=== PATIENT | male | born 1955 | race Caucasian/White ===

== ENCOUNTER 2017-08-07 21:19 | Inpatient (IN) | payer OTHER ==
[~2017-08-07] VITALS: Ht 180.3 cm; Wt 112.1 kg
--- NOTE | ~2017-08-07 | H ---
[place] [address] HISTORY AND PHYSICAL Name: ANTONETTE RODRIGUEZ Room #: 248-P [facility] IN M.R.#: [id number] Admission: 08/07/17 Attend Phys: Kimo Ballard MD Discharge: Date of : 51 Report #: [id number] THIS REPORT FOR: //name// CC: Kimo BRUNO PCP DATE OF SERVICE: 08/07/2017 INDICATION: Chest pain. HISTORY OF PRESENT ILLNESS: This is a 61-year-old gentleman with a history of psoriasis, strong family history for premature CAD, presenting with acute onset of chest pain. About 45 minutes prior to presentation to the ER, he developed substernal chest pains, radiating down the left arm. He had been at home, painting when this occurred. He felt diaphoretic, but denies any shortness of breath or nausea. In the ER, the ECG reveals sinus rhythm with ST elevation in the precordial leads. While in the ER, the patient developed VFib requiring DC cardioversion at 200 joules. He was given aspirin, epinephrine and amiodarone. He is awake and continues to have chest discomfort. There is no history of fever, chills or diarrhea. PAST MEDICAL HISTORY: Psoriasis. Denies diabetes or hypertension. ALLERGIES: None. MEDICATIONS: None. SOCIAL HISTORY: Denies tobacco use. FAMILY HISTORY: Positive for premature CAD, father with an HI in his 50s. REVIEW OF SYSTEMS: A full 10-point review of systems performed. Only the pertinent positives and negatives are described in the HPI. PHYSICAL EXAMINATION: VITAL SIGNS: Blood pressure is 110/70, heart rate is 100 beats per minute. GENERAL APPEARANCE: An overweight male in no acute respiratory distress. HEAD AND EYES: Normocephalic. Sclerae are anicteric. ENT: Oral mucosa moist. NECK: Supple. LUNGS: Clear to auscultation. CARDIAC: Regular rate and rhythm, S1, S2 positive. ABDOMEN: Soft. EXTREMITIES: No cyanosis, no edema. NEUROLOGIC: Alert and oriented x 3. [address] [place] [address] HISTORY AND PHYSICAL Name: ANTONETTE RODRIGUEZ Room #: 248-[facility] IN M.R.#: [id number] Admission: 08/07/17 Attend Phys: Kimo Ballard MD Discharge: Date of : 51 Report #: [id number] LABORATORY VALUES: ECG reveals sinus rhythm, ST elevation in leads V1 through V5. ASSESSMENT: 1. Acute anterior wall myocardial infarction. The patient will be taken emergently to the cardiac slab worker. 2. VFib secondary to HI, status post shock. Treated with epinephrine and amiodarone. 3. Hypercholesterolemia, start on statin. 4. Strong family history for premature coronary artery disease. <ELECTRONICALLY SIGNED> By: Kimo Ballard MD 08/08/17 0819 99 2254 Kimo Ballard MD /nt
--- NOTE | ~2017-08-07 | EKG ---
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 : 1955 Requested By: Mikel Rueda Order Number: [id number] MD: Kimo Ballard Measurements Intervals [place] Rate: 89 P: 43 PA: 175 QRS: 6 QRSD: 96 T: 81 QT: 368 QTc: 448 Interpretive Statements Sinus rhythm Probable left atrial enlargement Extensive anterior infarct, acute (LAD) ST elevation, consider inferior injury No previous ECG available for comparison Electronically Signed On 08-07-2017 23:07:51 GROUND EQUIPMENT MECHANIC by Kimo Ballard [email or web address] <ELECTRONICALLY SIGNED> By: Kimo Ballard MD 08/07/17 2307 2123 2123 Kimo Ballard MD /MATTIE
--- NOTE | ~2017-08-07 | EKG ---
[address] [address] ELECTROCARDIOGRAM REPORT Name: ANTONETTE RODRIGUEZ Room #: 248-P ADM IN M.R.#: [id number] Admission: 08/07/17 Attend Phys: Kimo Ballard MD Discharge: Date of : 53 Report #: [id number] THIS REPORT FOR: //name// [facility] Test Date: 2017-08-08 Test Time: 12:24:06 Pat Name: ANTONETTE RODRIGUEZ Department: Room: 248 P Gender: M Estate Attorney: BENNETT : 1955 Requested By: Kimo Ballard Order Number: [id number] MD: Chivo Howell Measurements Intervals [place] Rate: 94 P: HI: QRS: -5 QRSD: 99 T: 127 QT: 365 QTc: 457 Interpretive Statements Atrial flutter/fibrillation Ventricular premature complex Probable anteroseptal infarct, old Nonspecific T abnormalities, lateral leads Minimal ST elevation, lateral leads Compared to ECG 08/07/2017 23:28:35 Ventricular premature complex(es) now present Myocardial infarct finding now present T-wave abnormality now present ST (T wave) deviation still present Electronically Signed On 08-08-2017 14:08:26 HVAC SHEET METAL INSTALLER HELPER by Chivo Howell [email or web address] <ELECTRONICALLY SIGNED> By: Chivo Howell MD 08/08/17 1408 1224 1224 Chivo Howell MD /EPI
--- NOTE | ~2017-08-07 | D ---
[facility] [place] [address] DISCHARGE SUMMARY Name: ANTONETTE RODRIGUEZ Room #: 200-I [facility] IN M.R.#: [id number] Admission: 08/07/17 Attend Phys: Kimo Ballard MD Discharge: 08/10/17 Date of : 51 Report #: [id number] THIS REPORT FOR: //name// CC: Kimo Ballard NO PCP DATE OF SERVICE: 08/10/2017 FINAL DIAGNOSES: 1. Acute anterior wall myocardial infarction, status post coronary angioplasty. 2. Ventricular fibrillation, status post cardioversion. 3. Atrial fibrillation. 4. Hypercholesterolemia. 5. Family history for premature coronary artery disease. 6. Psoriasis. HOSPITAL COURSE: Please see the original H and P for full details. The patient presented to the hospital with complaints of substernal chest discomfort. The ECG revealed ST elevation in the precordial leads. While in the ER, he developed ventricular fibrillation requiring DC cardioversion. The rhythm converted to atrial fibrillation. He was taken emergently to the cardiac farm laborer. Please see the cath report for full details. There was a subtotal occlusion involving the proximal LAD, angioplasty was performed with placement of a drug-eluting stent. He was transferred to the ICU. He was treated with IV amiodarone, and the rhythm converted to sinus. He has remained stable on CCU telemetry, ambulating without any difficulties. He reports no further episodes of chest discomfort. FINAL DISPOSITION: Aspirin 81 mg daily, Brilinta 90 mg twice a day, Lipitor 40 mg daily, Toprol-XL 25 mg daily, losartan 25 mg daily, amiodarone 200 mg daily. He will be given a followup appointment in the office. <ELECTRONICALLY SIGNED> By: Kimo Ballard MD 08/11/17801 Kimo Ballard MD /nt
--- NOTE | ~2017-08-07 | EKG ---
[address] [address] ELECTROCARDIOGRAM REPORT Name: ANTONETTE RODRIGUEZ Room #: 248-P ADM IN M.R.#: [id number] Admission: 08/07/17 Attend Phys: Kimo Ballard MD Discharge: Date of : 51 Report #: [id number] THIS REPORT FOR: //name// [facility] Test Date: 2017-08-07 Test Time: 23:28:35 Pat Name: ANTONETTE RODRIGUEZ Department: Room: 248 Gender: M Chipper Feeder: ajith : 1955 Requested By: Kimo Ballard Order Number: [id number] MD: Kimo Ballard Measurements Intervals [place] Rate: 140 P: 0 NC: 128 QRS: 3 QRSD: 93 T: 112 QT: 315 QTc: 481 Interpretive Statements Atrial fibrillation with rapid ventricular rate ST elevation precordial leads, rule out [place] Compared to ECG 08/07/2017 21:23:01 Sinus rhythm no longer present ST (T wave) deviation no longer present Myocardial infarct finding still present Electronically Signed On 08-08-2017 11:24:06 MINE PATROL by Kimo Ballard [email or web address] <ELECTRONICALLY SIGNED> By: Kimo Ballard MD 08/08/17 1124 2328 2328 Kimo Ballard MD /[facility]
--- NOTE | ~2017-08-07 | CATHLAB ---
[facility] [address] [place] [address] INVASIVE PROCEDURE REPORT Name: ANTONETTE RODRIGUEZ Room #: 160-1 ADM IN M.R.#: [id number] Admission: 08/07/17 Attend Phys: Kimo Ballard MD Discharge: Date of : 51 Date of Service: 08/07/17 2317 Report #: [id number] THIS REPORT FOR: //name// APPROVED REPORT Patient Details Patient Status: In-Patient Room #: The patient is a 61 year-old male Event Personnel Trish Jenkins, Eric Jimenez RN, Alem Lawrence RN RN, Brunilda Toribio Park, Jin Purse Maker Procedures Performed Art Access - R femoral artery* Hemostasis w/ Mynx HEATH Place w/wo Plasty Single LAD [id number] Left Heart Cath w/or w/o Coronaries [id number] [facility] Indication Arrhythmia, STEMI (>0 to less than or equal to 6 hours), Dyspnea, Chest pain Risk Factors Family History, Hypercholesterolemia Procedure Narrative The patient was brought emergently to the Cardiac Catheterization Laboratory and was prepped and draped in a sterile manner. The Right Groin^ was infiltrated with 1% Lidocaine subcutaneous anesthesia. A PINNACLE 6FR Sheath #[id number] sheath was inserted into the RFA^. Coronary angiography was performed using coronary diagnostic catheters. The right coronary system was accessed and visualized with a JR 4 catheter. The left coronary system was accessed and visualized with a JL 4 catheter. The left ventricle was accessed and visualized with a Pigtail catheter. Left ventricular/Aortic Valve gradient assessed via catheter pullback. Left ventriculogram was performed in LITTLE projection. Pre-demployment femoral angiogram was performed . Closure device was deployed with a 6 Fr Mynx. The patient tolerated the procedure well and there were no complications associated with the procedure. There was no hematoma. Fluoro Time: 7.57 minutes Dose: DAP 88962.30 cGycm2 1915 mGy Contrast Type and Amount: Omnipaque 300 ml [facility] [address] [place] [address] INVASIVE PROCEDURE REPORT Name: ANTONETTE RODRIGUEZ Room #: 160-1 [facility] IN ..#: [id number] Admission: 08/07/17 Attend Phys: Kimo Ballard MD Discharge: Date of : 51 Date of Service: 08/07/17 2317 Report #: [id number] Coronary Angiography The patient's coronary anatomy is right dominant. Diagnostic Cath Left Main large-caliber vessel, with no flow-limiting lesions. LAD 99% occlusion in the proximal segment with BIN 1 blood flow. Circumflex Moderate size caliber vessel, with mild disease in the distal segment. OM1 Patent vessel with mild disease proximally, 20%. OM2 Patent vessel with mild disease at the ostium. OM3 Patent vessel, with no flow-limiting lesions. Right Coronary Dominant vessel with a moderate to severe proximal stenosis, 60-70%. R PDA Patent vessel, with no flow-limiting lesions. RPLV Patent vessel, with no flow-limiting lesions. Left Ventriculography The left ventricle is normal in size with decreased contractility. The left ventricular ejection fraction is estimated to be 40%. Left ventricular wall motion abnormalities are present. There is hypokinesis of the distal anterior, apical and distal inferior segments. Hemodynamics The aortic pressure is 127/82 mmHg with a mean of 106 mmHg. The left ventricular pressure is 97/11 mmHg with a mean of mmHg. The left ventricular end diastolic pressure is 36 mmHg. PCI Technique Lesion Anticoagulation was achieved with Angiomax. Patient was preloaded with Brillinta. Percutaneous coronary intervention was performed on the proximal left anterior descending artery segment. The lesion stenosis prior to intervention was 99% with BIN 1 flow. A VISTA 6FR JL4 #[id number] Guide Catheter was used to engage the ostium. A Luge Wire .014 x 182CM #[id number] Interventional Guidewire was used to cross the lesion. BALLOON DILATION A Balloon catheter Euphora RX 3.0 x 12 #[id number] was inserted and inflated up to 8.00atm for 13seconds. STENT DEPLOYMENT A drug-eluting stent RESOLUTE RX 3.5 X 15 #[id number] was inserted and inflated up to 12.00atm for 24seconds. [facility] [address] [place] [address] INVASIVE PROCEDURE REPORT Name: ANTONETTE RODRIGUEZ Room #: 160-1 [facility] IN M.R.#: [id number] Admission: 08/07/17 Attend Phys: Kimo Ballard MD Discharge: Date of : 51 Date of Service: 08/07/17 2317 Report #: [id number] POST STENT DEPLOYMENT BALLOON DILATION A Balloon catheter Euphora NC RX 3.75 x 12 #[id number] was inserted and inflated up to 16.00atm for 23seconds. Final angiography reveals 0 % stenosis with BIN 3 flow. Conclusion 1. Successful insertion of a drug-eluting stent into the subtotal occlusion in the proximal LAD, with tenriism of BIN-3 blood flow. 2. Moderate to severe stenosis in proximal RCA. 3. Moderate segmental LV dysfunction. 4. Recommend CAD risk factor management and dual antiplatelet therapy. <ELECTRONICALLY SIGNED> By: Kimo Ballard MD 08/07/177 16 16 Kimo Ballard MD /INF
[2017-08-07 21:26] VITALS: BP 190/120
[2017-08-07 21:50] LABS: HEMATOCRIT 47.5 % (42.0-52.0); MCH 31.1 pg (26.0-34.0); MCHC 33.8 g/dL (28.0-37.0); MCV 92.2 fL (80.0-100.0); RBC 5.15 mil/uL (4.50-6.00); RDW 13.7 % (10.5-14.5)
[2017-08-07 22:00] LABS: ANION GAP 12 mmol/L (7-16); BUN 18 mg/dL (7-18); CALCIUM 9.9 mg/dL (8.5-10.1); CHLORIDE 103 mmol/L (98-107); CO2 25 mmol/L (21-32); CREATININE 1.1 mg/dL (0.7-1.3); GLUCOSE 128 mg/dL (74-106); POTASSIUM 3.8 mmol/L (3.5-5.1); SODIUM 140 mmol/L (136-145)
[2017-08-07 22:08] LABS: TROPONIN-I < 0.04 ng/mL (<0.06)
[2017-08-07 22:22] VITALS: BP 112/81
[2017-08-07 23:25] VITALS: BP 96/65
[2017-08-07 23:30] VITALS: BP 113/70
[2017-08-07 23:45] VITALS: BP 122/92
[2017-08-08] VITALS (29 sets, daily range): BP systolic 86–162; BP diastolic 48–106
[2017-08-08] MEDS ORDERED: ASPIR 8181 MG PO (00:31)
[2017-08-08] MEDS ORDERED: CO Q-10100 MG PO (00:32)
[2017-08-08] MEDS ORDERED: UNICOMPLEX M TA1 TA1 PO (00:32)
[2017-08-08] MEDS ORDERED: MUCINEX1200 MG PO (00:33)
[2017-08-08] MEDS ORDERED: DIPROLENE 0.05%15 GM TOP (00:35)
[2017-08-08] MEDS ORDERED: TUMS PO (00:37)
[2017-08-08 05:32] LABS: HEMATOCRIT 44.7 % (42.0-52.0); HEMOGLOBIN 15.1 gm/dL (14.0-18.0); MCH 31.1 pg (26.0-34.0); MCHC 33.8 g/dL (28.0-37.0); MCV 92.1 fL (80.0-100.0); RBC 4.86 mil/uL (4.50-6.00); WBC 11.6 thou/uL (4.0-11.0)
[2017-08-08 05:44] LABS: CALCIUM 9.6 mg/dL (8.5-10.1)
[2017-08-09] VITALS (9 sets, daily range): BP systolic 101–149; BP diastolic 69–83
[2017-08-09 05:05] LABS: HEMATOCRIT 44.6 % (42.0-52.0); HEMOGLOBIN 14.9 gm/dL (14.0-18.0); MCH 30.9 pg (26.0-34.0); MCHC 33.4 g/dL (28.0-37.0); MCV 92.4 fL (80.0-100.0); RBC 4.83 mil/uL (4.50-6.00); WBC 12.6 thou/uL (4.0-11.0)
[2017-08-09 05:24] LABS: CALCIUM 8.2 mg/dL (8.5-10.1); CREATININE 1.1 mg/dL (0.7-1.3)
[2017-08-09 05:28] LABS: TROPONIN-I 21.22 ng/mL (<0.06)
[2017-08-10 03:11] LABS: CALCIUM 8.4 mg/dL (8.5-10.1); CREATININE 1.1 mg/dL (0.7-1.3); POTASSIUM 3.6 mmol/L (3.5-5.1)
[2017-08-10 03:15] LABS: TROPONIN-I 12.44 ng/mL (<0.06)
[2017-08-10 03:20] VITALS: BP 112/75
[2017-08-10 08:08] VITALS: BP 135/83
[2017-08-10] MEDS ORDERED: COZAAR 25 MG TA25 M1 PO (08:14)
[2017-08-10] MEDS ORDERED: ATORVASTATIN CA40 MG PO (08:14)
[2017-08-10] MEDS ORDERED: TOPROL XL25 MG PO (08:14)
[2017-08-10] MEDS ORDERED: BRILINTA90 MG PO (08:14)
[2017-08-10] MEDS ORDERED: PACERONE 200 M200 M1 PO (08:31)
[2017-08-10 08:44] VITALS: BP 135/83
[2017-08-10 08:59] VITALS: BP 135/83
== END 2017-08-10 11:45 | disposition home or self-care (01) | DRG 246 ==
LOC: ER 21:19 → TBACV 21:54 → ICU 23:44 → 2N 08-09 04:55 → ENTRNSPT 08-10 11:26 → EDTRNSPTSTS 08-10 11:27 → 2N 08-10 11:45
PROVIDERS: Emergency Medicine; Internal Medicine Cardiovascular Disease
PROC: 4A023N7 Measurement of Cardiac Sampling and Pressure, Left Heart, Percutaneous Approach (ICD-10-PCS; principal; 2017-08-07)
PROC: B2151ZZ Fluoroscopy of Left Heart using Low Osmolar Contrast (ICD-10-PCS; principal; 2017-08-07)
PROC: B2111ZZ Fluoroscopy of Multiple Coronary Arteries using Low Osmolar Contrast (ICD-10-PCS; principal; 2017-08-07)
PROC: 027034Z Dilation of Coronary Artery, One Artery with Drug-eluting Intraluminal Device, Percutaneous Approach (ICD-10-PCS; principal; 2017-08-07)
DX: I21.09 ST elevation (STEMI) myocardial infarction involving other coronary artery of anterior wall (principal); I49.01 Ventricular fibrillation; I48.91 Unspecified atrial fibrillation; E78.00 Pure hypercholesterolemia, unspecified; L40.9 Psoriasis, unspecified; I25.10 Atherosclerotic heart disease of native coronary artery without angina pectoris; Z79.899 Other long term (current) drug therapy; Z82.49 Family history of ischemic heart disease and other diseases of the circulatory system
CPT/HCPCS: 10078; 10081

== ENCOUNTER → 2018-05-07 | Outpatient (CLI) | payer OTHER ==
[~2018-05-07] MED LIST: ASPIR 8181 MG PO; ATORVASTATIN CA40 MG PO; BRILINTA90 MG PO; CO Q-10100 MG PO; COZAAR 25 MG TA25 M1 PO; DIPROLENE 0.05%15 GM TOP; MUCINEX1200 MG PO; PACERONE 200 M200 M1 PO; TOPROL XL25 MG PO; TUMS PO; UNICOMPLEX M TA1 TA1 PO
--- NOTE | ~2018-05-07 | SLE ---
[facility] [place] [address] POLYSOMNOGRAPHY STUDY Name: ANTONETTE RODRIGUEZ [id number] Admission: 05/07/18 Attend Phys: Kingston Peng MD Discharge: Date of : 53 Report #: [id number] THIS REPORT FOR: //name// CC: Kingston Ballard MD NO PCP DATE OF SERVICE: 05/07/2018 ATTENDING PHYSICIAN: Kimo Ballard MD DESCRIPTION: The patient is 62 years old who weighs 245 pounds and is 72 inches tall with a BMI of 33.2. The patient's [place] score was not reported. The patient underwent a split night study performed by [facility]. During the night study, the patient spent 479 minutes in bed and slept for 351 minutes with a sleep efficiency of 73%. Sleep latency was 8.8 minutes with a REM latency of 152 minutes. Overall, sleep architecture showed normal stage 1 sleep, increased stage 2 sleep, normal slow wave and reduced REM sleep, which was 15% of the total sleep time. During the initial diagnostic portion of the study, the patient spent 167 minutes in bed and slept for 112 minutes. During that time, the patient had 133 apneas. There were 122 obstructive apneas, 1 mixed and 10 central apneas and 20 hypopneas. The patient's apnea-hypopnea index was 81.6 per hour with a REM index of 34 per hour and a supine index of 81 per hour. EKG monitoring revealed an average heart rate of 70 beats per minute with a maximum of 92 beats per minute, normal sinus rhythm. No sustained arrhythmias were observed. PLMS were seen at an index of 2.7 per hour and none caused EEG arousals. Nocturnal oximetry study during the diagnostic portion revealed an average oxygen saturation of 94% with a lowest of 69%. 15.6 minutes were spent at an oxygen saturation of less than 89%. The patient was started on CPAP at a pressure of 4 cm water and the pressure was increased all the way up to 17 cm water. There was limited sleep seen at the higher pressures, but the patient's respiratory events were not completely eliminated. The patient's AHI from 6.8 minutes of sleep at 17 cm water was 53.9 due to few central apneas. Even at lower pressures from 16 minutes of sleep at 15 cm water, AHI was still 41 per hour. Optimum CPAP pressure was not achieved on this split night study. The patient's oxygen saturations remain above 87% on the final pressure of 17 cm water. I would recommend the patient should be placed on auto BiPAP. [address] [address] POLYSOMNOGRAPHY STUDY Name: ANTONETTE RODRIGUEZ Room #: REG Yesenia Simon#: [id number] Admission: 05/07/18 Attend Phys: Kingston Peng MD Discharge: Date of : 53 Report #: [id number] IMPRESSION: 1. Severe sleep apnea-hypopnea syndrome at an apnea-hypopnea index of 81 per hour. 2. No clinically significant periodic limb movements during sleep. 3. Nocturnal hypoxia secondary to obstructive sleep apnea. RECOMMENDATIONS: 1. Patient should be placed on an auto BiPAP at a maximum IPAP pressure of 22 and a minimum EPAP pressure of 16 with pressure support of 4. The patient should have a download information and any adjustments on the BiPAP can be made. However, in future if AHI remains more than 10 per hour on download, patient can return to the lab for a full night BIPAP titration study. 2. Caution regarding driving until symptoms of sleep apnea resolve with the above recommendations. 3. Weight loss is strongly advised. 4. Avoid RESERVATIONS CLERK depressants. <ELECTRONICALLY SIGNED> By: Kingston Peng MD 05/09/18 1927 1750 181 Kingston Peng MD /nt
== END ==
LOC: SLEEPLAB 10:46
DX: G47.30 Sleep apnea, unspecified (principal); R09.02 Hypoxemia; I25.10 Atherosclerotic heart disease of native coronary artery without angina pectoris; I10 Essential (primary) hypertension; E78.00 Pure hypercholesterolemia, unspecified; I48.0 Paroxysmal atrial fibrillation; Z87.891 Personal history of nicotine dependence

== ENCOUNTER → 2019-11-08 | Outpatient (CLI) | payer OTHER | LOC: SJCVCIMAG 10-25 16:23 | DX: I25.10 Atherosclerotic heart disease of native coronary artery without angina pectoris (principal); I10 Essential (primary) hypertension; K21.9 Gastro-esophageal reflux disease without esophagitis; E78.00 Pure hypercholesterolemia, unspecified; I48.0 Paroxysmal atrial fibrillation; I25.2 Old myocardial infarction; E78.5 Hyperlipidemia, unspecified; Z95.820 Peripheral vascular angioplasty status with implants and grafts; Z87.891 Personal history of nicotine dependence; Z79.82 Long term (current) use of aspirin; Z79.899 Other long term (current) drug therapy ==

== ENCOUNTER → 2020-05-08 | Outpatient (CLI) | payer OTHER | LOC: SJCVC 14:01 | PROVIDERS: ATTEND Internal Medicine Cardiovascular Disease | DX: I25.10 Atherosclerotic heart disease of native coronary artery without angina pectoris (principal); I10 Essential (primary) hypertension; K21.9 Gastro-esophageal reflux disease without esophagitis; E78.00 Pure hypercholesterolemia, unspecified; Z95.820 Peripheral vascular angioplasty status with implants and grafts ==

== ENCOUNTER → 2020-05-22 | Outpatient (CLI) | payer OTHER | LOC: SJCVC 08:02 | PROVIDERS: ATTEND Internal Medicine Cardiovascular Disease | DX: I25.10 Atherosclerotic heart disease of native coronary artery without angina pectoris (principal); I48.91 Unspecified atrial fibrillation; Z95.5 Presence of coronary angioplasty implant and graft; Z68.38 Body mass index [BMI] 38.0-38.9, adult; Z79.899 Other long term (current) drug therapy; Z83.3 Family history of diabetes mellitus ==

== ENCOUNTER → 2020-11-06 | Outpatient (CLI) | payer OTHER | LOC: SJCVC 10:26 | PROVIDERS: ATTEND Internal Medicine Cardiovascular Disease | DX: I25.10 Atherosclerotic heart disease of native coronary artery without angina pectoris (principal); I10 Essential (primary) hypertension; K21.9 Gastro-esophageal reflux disease without esophagitis; E78.00 Pure hypercholesterolemia, unspecified; I48.91 Unspecified atrial fibrillation; I25.2 Old myocardial infarction; G47.33 Obstructive sleep apnea (adult) (pediatric); L40.9 Psoriasis, unspecified; Z87.891 Personal history of nicotine dependence; Z72.89 Other problems related to lifestyle; Z79.82 Long term (current) use of aspirin; Z79.899 Other long term (current) drug therapy ==

== ENCOUNTER → 2021-05-08 | Outpatient (CLI) | payer OTHER | LOC: SJCVCIMAG 10:19 | PROVIDERS: ATTEND Internal Medicine Cardiovascular Disease | DX: R00.1 Bradycardia, unspecified (principal); I25.10 Atherosclerotic heart disease of native coronary artery without angina pectoris; I10 Essential (primary) hypertension; K21.9 Gastro-esophageal reflux disease without esophagitis; E78.00 Pure hypercholesterolemia, unspecified; I48.0 Paroxysmal atrial fibrillation; R09.89 Other specified symptoms and signs involving the circulatory and respiratory systems; G47.33 Obstructive sleep apnea (adult) (pediatric); F10.10 Alcohol abuse, uncomplicated; Z87.891 Personal history of nicotine dependence; Z79.82 Long term (current) use of aspirin; Z79.899 Other long term (current) drug therapy; Z82.49 Family history of ischemic heart disease and other diseases of the circulatory system ==

== ENCOUNTER → 2021-05-20 | Outpatient (CLI) | payer OTHER | END | disposition home or self-care (01) | LOC: SJCVCIMAG 09:21 | PROVIDERS: ATTEND Internal Medicine Cardiovascular Disease | DX: I65.23 Occlusion and stenosis of bilateral carotid arteries (principal); K21.9 Gastro-esophageal reflux disease without esophagitis; I25.10 Atherosclerotic heart disease of native coronary artery without angina pectoris; G47.33 Obstructive sleep apnea (adult) (pediatric); Z95.818 Presence of other cardiac implants and grafts; Z87.891 Personal history of nicotine dependence; Z72.89 Other problems related to lifestyle ==